=== PATIENT | male | born 1995 | race Two or more races ===

== ENCOUNTER 2017-08-27 13:57 | Emergency (ER) | payer SELFPAY ==
[~2017-08-27] VITALS: Ht 180.3 cm; Wt 150.1 kg
[2017-08-27 15:03] LABS: Urine Bacteria NONE SEEN /hpf (None Seen); Urine Blood 1+ /uL (Negative); Urine Mucus FEW (None Seen); Urine Specific Gravity 1.018 (1.001-1.035); Urine WBC 736 /hpf (0 - 3)
[2017-08-27 22:00] VITALS: BP 131/72
== END 2017-08-27 23:18 | disposition home or self-care (01) ==
LOC: ER 13:57
DX: N50.89 Other specified disorders of the male genital organs (principal)
CPT/HCPCS: 76870; 81001